=== PATIENT | male | born 1985 | race Caucasian/White ===

== ENCOUNTER 2019-06-11 05:25 | Inpatient (IN) | payer OTHER ==
[2019-06-11] MEDS ORDERED: ACETAMINOPHEN 1000 MG/100 ML VIAL (NON FORMULARY) IVPB ONE (05:37)
[2019-06-11] MEDS ORDERED: levETIRAcetam 500 MG/5 ML INJECTION VIAL IVPB ONE ×3 (05:44→10:13)
--- NOTE | 2019-06-11 05:49 | PDOC ---
History of Present Illness - General Stated Complaint: SEIZURES Time Seen by Provider: 06/11/19 05:45 - History of Present Illness Initial Comments: HPI: 33yo M with PMH of cerebral palsy and seizure disorder (on Keppra 750mg BID and carbamezapine) presenting with multiple seizures. Mother and sisters are at the bedside providing collateral history. Patient recently moved from the [facility] about three months ago. At baseline, patient usually has one or two seizures per day lasting about five seconds at a time. Patient had multiple seizures (one at 1pm and the rest after 8pm for a total of more than seven) today lasting for about one minute each prompting his family to bring the patient to the ED. Last saw his neurologist two weeks ago and has an appointment on 06/20/19 at 11am for an EEG. At baseline, patient is verbal such that only his family can understand him and can ambulate with assistance. He has seemed weaker in the past week. They noticed a cough but no urinary complaints. He has been eating at baseline. No fevers or chills noted at home. PCP: Dr. Wynn Neuro: Dr. Miller ROS: unable to complete (patient somnolent) PE: General: Somnolent, but will open his eyes Head: Microcephaly, No signs of trauma Eyes: Sclera anicteric ENT: Moist mucus membranes Neck: Normal ROM, supple Lungs: Lungs clear, Normal breath sounds Cardio: Tachycardic, Regular rhythm, S1 and S2 present Abdomen: Soft, nondistended, no grimacing noted upon palpation Extremities: Distal pulses present SKIN: Warm, Dry, normal turgor Neurologic: Lethargic, moving all extremities ED Course/MDM: DDX including but not limited to status epilepticus, sub/supratherapeutic AED levels, UTI, PNA Labs, EKG, CXR CT Head EKG: rate 118, QTc 462, sinus tachycardia 06/11/19 05:45 Patient signed out to Dr. Emery and el team 06/11/19 06:58 Past History - Past Medical History Allergies/Adverse Reactions: Allergies Allergy/AdvReac Type Severity Reaction Status Date / Time No Known Allergies Allergy Verified 06/11/19 06:23 Home Medications: Ambulatory Orders Carbamazepine [Tegretol -] 400 mg PO BID 06/11/19 Ergocalciferol (Vitamin D2) [Vitamin D2] 50,000 unit WEEKLY 06/11/19 Levetiracetam [Keppra Xr -] 750 mg PO BID 06/11/19 Olanzapine 5 mg BID 06/11/19 ED Treatment Course - LABORATORY CBC & Chemistry Diagram: 06/11/19 05:50 06/11/19 05:50 Discharge - Discharge Information Problems reviewed: Yes Clinical Impression/Diagnosis: Seizure Condition: Stable - Follow up/Referral - Patient Discharge Instructions - Post Discharge Activity
--- NOTE | 2019-06-11 05:51 | PDOC ---
Attending Attestation - Resident Resident Name: Chloé Srivsatava - ED Attending Attestation I have performed the following: I have examined & evaluated the patient, The case was reviewed & discussed with the resident, I agree w/resident's findings & plan - HPI HPI: 06/11/19 05:50 see resident hpi - Physicial Exam PE: 06/11/19 05:51 see resident exam - Medical Decision Making 06/16/19 16:10 33 yo male with seizure signed out to day shift pending CT scan, neuro consult
[2019-06-11 06:21] LABS: BASO % 0.4 % (0-2.0); EOS % 0.5 % (0-4.5); HEMOGLOBIN 13.7 GM/dL (11.7-16.9); LYMPH % 16.6 % (8-40); MCH 29.7 pg (25.7-33.7); MCHC 33.3 g/dl (32.0-35.9); MEAN CELL VOLUME 89.1 fl (80-96); MEAN PLT VOLUME 7.9 fl (7.5-11.1); MONO % 4.4 % (3.8-10.2); NEUT % 78.1 % (42.8-82.8); PLATELET COUNT 236 K/MM3 (134-434); WHITE BLOOD COUNT 8.1 K/mm3 (4.0-10.0)
[2019-06-11 06:25] LABS: VENOUS PC02 40.2 mmHg (38-52); VENOUS PH 7.34 (7.31-7.41); VENOUS PO2 61.1 mmHg (28-48)
[2019-06-11 06:32] LABS: INR 1.08 (0.83-1.09); PROTHROMBIN TIME (PATIENT) 12.8 SEC (9.7-13.0)
[2019-06-11 06:34] LABS: ACTIVATED PTT 26.4 SECONDS (25.2-36.5)
[2019-06-11 06:44] LABS: ALBUMIN 3.5 g/dl (3.4-5.0); BILIRUBIN,TOTAL 0.1 mg/dL (0.2-1); BLOOD UREA NITROGEN 7.8 mg/dL (7-18); CALCIUM 9.2 mg/dL (8.5-10.1); POTASSIUM 3.3 mmol/L (3.5-5.1); TOT PROT 7.4 g/dl (6.4-8.2)
[2019-06-11 06:48] LABS: EPI CELLS 4.8 /HPF (0-5/HPF); HYALINE CASTS 15 /lpf (0-8); URINE APPEARANCE CLEAR; URINE BACTERIA 12.4 /hpf (NEGATIVE); URINE BILIRUBIN NEGATIVE (NEGATIVE); URINE COLOR YELLOW; URINE GLUCOSE (UA) NEGATIVE (NEGATIVE); URINE KETONE TRACE (NEGATIVE); URINE LEUK ESTERASE TRACE (NEGATIVE); URINE NITRITE NEGATIVE (NEGATIVE); URINE PROTEIN TRACE (NEGATIVE); URINE RBC 4 /hpf (0-4); URINE UROBILINOGEN 0.2 mg/dL (0.2-1.0); URINE WBC 6 /hpf (0-5)
--- NOTE | 2019-06-11 08:57 | CON.NEURO ---
Consult - Alcohol/Substance Use Hx Alcohol Use: No - Smoking History Smoking history: Never smoked Home Medications - Allergies Allergies/Adverse Reactions: Allergies Allergy/AdvReac Type Severity Reaction Status Date / Time No Known Allergies Allergy Verified 06/11/19 06:23 - Home Medications Home Medications: Ambulatory Orders Carbamazepine [Tegretol -] 400 mg PO BID 06/11/19 Levetiracetam [Keppra Xr -] 750 mg PO BID 06/11/19 Physical Exam-Neuro Vital Signs: Vital Signs Temperature 100.1 F H 06/11/19 05:55 Pulse Rate 129 H 06/11/19 05:48 Respiratory Rate 30 H 06/11/19 05:48 Blood Pressure 144/79 06/11/19 05:48 O2 Sat by Pulse Oximetry (%) 0 L 06/11/19 05:48 Labs: CBC, BMP 06/11/19 05:50 06/11/19 05:50 INR, PTT INR 1.08 (0.83-1.09) 06/11/19 05:50 Assessment/Plan cc Status Epilepticus HPI 33 year old male , history of cerebral palsy, epilepsy( on keppra 750 bid and cbz 400 mg bid). Patient lives with family and mostly wheel chair bound. He has minimal comprehensiion. He usually gets 4-5 small brief seizure but not prolonged loc or seizure. On june 11 he has at least 10 seizure, but those were prolonged and without regaining loc. Patient has low grade fever 100.[address] head unremarkable. PMH as above Medication cbz 400 mg bid and keppra 750 mg bid FH,SH,[facility] neck is supple etmp 1oo.1 Alert , opens eye, and follow command occasionally eomi, pupils reactive, moving all extremity sensation is noraml reflex are generlaized diminished ct head is normal cbz level was 7.4 Assessment/Plan 1. Recurrent multiple seizure on Jun 10 , patient is compliant with medication and found to have low grade fever, which could be secondary to multiple seizure Plan: unlikley to be Meninigits , primary team searching source of fever and low grade fever could be secondary to seizure - suggest to get eeg - supprotive care and infectious work up increase keppra to 1000 mg po bid Thanking you so much Germain Miller MD
--- NOTE | 2019-06-11 09:22 | PDOC ---
*Physical Exam - Vital Signs Last Vital Signs Temp Pulse Resp BP Pulse Ox 100.1 F H 129 H 30 H 144/79 0 L 06/11/19 05:55 06/11/19 05:48 06/11/19 05:48 06/11/19 05:48 06/11/19 05:48 - Physical Exam General Appearance: Yes: Nourished. No: Apparent Distress HEENT: positive: Normal ENT Inspection, Normal Voice Neck: positive: Supple Respiratory/Chest: positive: Lungs Clear, Normal Breath Sounds, Rapid RR Cardiovascular: positive: S1, S2, Tachycardia Vascular Pulses: Dorsalis-Pedis (R): 2+, Doralis-Pedis (L): 2+ Gastrointestinal/Abdominal: positive: Soft Male Genitalia: positive: normal genitalia Rectal Exam: positive: normal exam Lymphatic: negative: Adenopathy Musculoskeletal: positive: Decreased Range of Motion. negative: CVA Tenderness , Vertebral Tenderness Extremity: positive: Normal Capillary Refill, Normal Inspection Integumentary: positive: Normal Color, Dry, Warm Neurologic: positive: Fully Oriented, Alert, Normal Mood/Affect ED Treatment Course - LABORATORY CBC & Chemistry Diagram: 06/11/19 05:50 06/11/19 05:50 - ADDITIONAL ORDERS Additional order review: Laboratory Results 06/11/19 06/11/19 06/11/19 06:09 05:50 05:50 PT with INR INR PTT (Actin FS) VBG pH 7.34 POC VBG pCO2 40.2 POC VBG pO2 61.1 H VBG HCO3 20.9 L VBG O2 Sat (Atul) No Result Required. VBG Base Excess No Result Required. Sodium Potassium Chloride Carbon Dioxide Anion Gap BUN Creatinine Est GFR (CKD-EPI)AfAm Est GFR (CKD-EPI)NonAf Random Glucose Lactic Acid 7.7 H* Calcium Total Bilirubin AST ALT Alkaline Phosphatase Troponin I Total Protein Albumin Urine Color Yellow Urine Appearance Clear Urine pH 5.0 Ur Specific [place] 1.018 Urine Protein Trace Urine Glucose (UA) Negative Urine Ketones Trace H Urine Blood Negative Urine Nitrite Negative Urine Bilirubin Negative Urine Urobilinogen 0.2 Ur Leukocyte Esterase Trace Urine WBC (Auto) 6 Urine RBC (Auto) 4 Urine Casts (Auto) 15 U Epithel Cells (Auto) 4.8 U Sm Round Cell (Auto) None Urine Bacteria (Auto) 12.4 Carbamazepine 11/06/11/19 06/11/19 05:50 05:50 05:50 PT with INR INR PTT (Actin FS) VBG pH POC VBG pCO2 POC VBG pO2 VBG HCO3 VBG O2 Sat (Atul) VBG Base Excess Sodium 141 Potassium 3.3 L Chloride 109 H Carbon Dioxide 22 Anion Gap 10 BUN 7.8 Creatinine 1.0 Est GFR (CKD-EPI)AfAm 112.51 Est GFR (CKD-EPI)NonAf 97.08 Random Glucose 126 H Lactic Acid Calcium 9.2 Total Bilirubin 0.1 L AST 22 ALT 30 Alkaline Phosphatase 113 Troponin I < 0.02 Total Protein 7.4 Albumin 3.5 Urine Color Urine Appearance Urine pH Ur Specific [place] Urine Protein Urine Glucose (UA) Urine Ketones Urine Blood Urine Nitrite Urine Bilirubin Urine Urobilinogen Ur Leukocyte Esterase Urine WBC (Auto) Urine RBC (Auto) Urine Casts (Auto) U Epithel Cells (Auto) U Sm Round Cell (Auto) Urine Bacteria (Auto) Carbamazepine 7.4 06/11/19 05:50 PT with INR 12.80 INR 1.08 PTT (Actin FS) 26.4 VBG pH POC VBG pCO2 POC VBG pO2 VBG HCO3 VBG O2 Sat (Atul) VBG Base Excess Sodium Potassium Chloride Carbon Dioxide Anion Gap BUN Creatinine Est GFR (CKD-EPI)AfAm Est GFR (CKD-EPI)NonAf Random Glucose Lactic Acid Calcium Total Bilirubin AST ALT Alkaline Phosphatase Troponin I Total Protein Albumin Urine Color Urine Appearance Urine pH Ur Specific [place] Urine Protein Urine Glucose (UA) Urine Ketones Urine Blood Urine Nitrite Urine Bilirubin Urine Urobilinogen Ur Leukocyte Esterase Urine WBC (Auto) Urine RBC (Auto) Urine Casts (Auto) U Epithel Cells (Auto) U Sm Round Cell (Auto) Urine Bacteria (Auto) Carbamazepine 06/11/19 05:50 RBC 4.60 MCV 89.1 MCHC 33.3 RDW 13.0 MPV 7.9 Neutrophils % 78.1 Lymphocytes % 16.6 Monocytes % 4.4 Eosinophils % 0.5 Basophils % 0.4 - Medications Given in the ED: ED Medications Discontinued Medications Generic Name Dose Route Start Last Admin Trade Name Freq PRN Reason Stop Dose Admin Acetaminophen 1,000 mg 06/11/19 05:37 06/11/19 06:22 Ofirmev Injection - IVPB 06/11/19 05:38 1,000 mg ONCE ONE Administration Levetiracetam 1,000 mg 06/11/19 05:44 06/11/19 05:59 Keppra Injection - IVPB 06/11/19 05:45 Not Given ONCE ONE Medical Decision Making - Medical Decision Making Patient Signed out to me from night team pending Head CT, neuro consult, and admission to hospital for status epilepticus head CT: No acute bleed Neuro Consult - Dr. Batista: Aware of patient, wants him to be loaded up with Keppra and admitted - Patient had another seizure in ER - 2 mg ativan + 1000 keppra Disposition: Admit to telemetry for status Discharge - Discharge Information Problems reviewed: Yes Clinical Impression/Diagnosis: Seizure Condition: Stable - Admission Yes - Follow up/Referral - Patient Discharge Instructions - Post Discharge Activity
--- NOTE | 2019-06-11 09:49 | PN ---
Teaching Attending Note Name of Resident: Jorge Durand ATTENDING PHYSICIAN STATEMENT I saw and evaluated the patient. I reviewed the resident's note and discussed the case with the resident. I agree with the resident's findings and plan as documented. SUBJECTIVE: Witnessed seizure OBJECTIVE: Vital Signs Temperature 99.5 F 06/11/19 09:31 Pulse Rate 85 06/11/19 09:31 Respiratory Rate 18 06/11/19 09:31 Blood Pressure 137/83 06/11/19 09:31 O2 Sat by Pulse Oximetry (%) 98 06/11/19 09:31 General: Young man looks drowsy not in distress HEENT; mucous membranes moist, no anemia, no jaundice, PERRLA, no nystagmus Neck: No JVD, supple, no bruit, thyroid palpably normal, normal carotid pulsations. Chest: Non-`tender, clear to auscultation bilaterally CVS: S1-S2 regular/danna murmur/gallop/rub Abdomen: Nondistended, soft, bowel sounds present. Extremities: No edema., No cough tenderness, pulses present DIRECTOR OF INDIVIDUAL GIVING: Cerebral palsy, received IV lorazepam Lab Results WBC 8.1 K/mm3 (4.0-10.0) 06/11/19 05:50 RBC 4.60 M/mm3 (4.00-5.60) 06/11/19 05:50 Hgb 13.7 GM/dL (11.7-16.9) 06/11/19 05:50 Hct 41.0 % (35.4-49) 06/11/19 05:50 MCV 89.1 fl (80-96) 06/11/19 05:50 MCHC 33.3 g/dl (32.0-35.9) 06/11/19 05:50 RDW 13.0 % (11.9-15.9) 06/11/19 05:50 Plt Count 236 K/MM3 (134-434) 06/11/19 05:50 Sodium 141 mmol/L (136-145) 06/11/19 05:50 Potassium 3.3 mmol/L (3.5-5.1) L 06/11/19 05:50 Chloride 109 mmol/L (98-107) H 06/11/19 05:50 Carbon Dioxide 22 mmol/L (21-32) 06/11/19 05:50 Anion Gap 10 MMOL/L (8-16) 06/11/19 05:50 BUN 7.8 mg/dL (7-18) 06/11/19 05:50 Creatinine 1.0 mg/dL (0.55-1.3) 06/11/19 05:50 Random Glucose 126 mg/dL (74-106) H 06/11/19 05:50 Calcium 9.2 mg/dL (8.5-10.1) 06/11/19 05:50 INR 1.08 (0.83-1.09) 06/11/19 05:50 Lactic acid 7.4 Chest x-ray: No acute infiltrate ASSESSMENT AND PLAN: 33 years old M , nonverbal, information is gathered from the family and ER chart, history of cerebral palsy, lives at home, wheelchair- bound, history of seizures, as per family patient get 1-2 breakthrough seizures every day, yesterday had more than 10 breakthrough seizure with drowsiness, also history of mild cough and congestion for past few days, no nausea/vomiting/ diarrhea, on arrival to ED patient had a low-grade fever, CBC, BMP, chest x-ray , UA are unremarkable, CT head no acute changes, evaluated by neurology recommended to increase Keppra dose to 1 g twice daily and as needed lorazepam for breakthrough seizures Impression: Breakthrough seizures history of seizure disorder sent cerebral palsy. Problem List - Problems (1) Seizure Assessment/Plan: Patient has history of febrile seizure on Tegretol 400 mg and Keppra 750 mg twice daily, presented with recurrent seizures, low-grade fever possibility of URTI provoking breakthrough seizures will order rapid flu test, PRN Tylenol for fever, follow-up neurology recommendations increase Keppra to 1 g twice daily, aspiration precautions, n.p.o., D5 half normal saline 100 cc/h, follow-up magnesium, phosphate and lactic acid. Problems reviewed: Yes Code(s): R56.9 - UNSPECIFIED CONVULSIONS (2) Elevated lactic acid level Assessment/Plan: Most likely due to recurrent seizures, IV hydration follow-up lactic acid level. Problems reviewed: Yes Code(s): R79.89 - OTHER SPECIFIED ABNORMAL FINDINGS OF BLOOD CHEMISTRY (3) Cerebral palsy Assessment/Plan: Chronic Problems reviewed: Yes Code(s): G80.9 - CEREBRAL PALSY, UNSPECIFIED
[2019-06-11] MEDS ORDERED: LORazepam 2 MG/ML SDV VIAL ONE (10:05)
--- NOTE | 2019-06-11 10:12 | PDOC ---
*Physical Exam - Vital Signs Last Vital Signs Temp Pulse Resp BP Pulse Ox 99.5 F 85 18 137/83 98 06/11/19 09:31 06/11/19 09:31 06/11/19 09:31 06/11/19 09:31 06/11/19 09:31 - Physical Exam Comments: 06/11/19 10:11 pt noted to suffer another gen tonic clonic seizure. will administer ativan- 1mg iv. keppra iv being prepped. ED Treatment Course - LABORATORY CBC & Chemistry Diagram: 06/11/19 05:50 06/11/19 05:50 - ADDITIONAL ORDERS Additional order review: Laboratory Results 06/11/19 06/11/19 06/11/19 06:09 05:50 05:50 PT with INR INR PTT (Actin FS) VBG pH 7.34 POC VBG pCO2 40.2 POC VBG pO2 61.1 H VBG HCO3 20.9 L VBG O2 Sat (Atul) No Result Required. VBG Base Excess No Result Required. Sodium Potassium Chloride Carbon Dioxide Anion Gap BUN Creatinine Est GFR (CKD-EPI)AfAm Est GFR (CKD-EPI)NonAf Random Glucose Lactic Acid 7.7 H* Calcium Total Bilirubin AST ALT Alkaline Phosphatase Troponin I Total Protein Albumin Urine Color Yellow Urine Appearance Clear Urine pH 5.0 Ur Specific [place] 1.018 Urine Protein Trace Urine Glucose (UA) Negative Urine Ketones Trace H Urine Blood Negative Urine Nitrite Negative Urine Bilirubin Negative Urine Urobilinogen 0.2 Ur Leukocyte Esterase Trace Urine WBC (Auto) 6 Urine RBC (Auto) 4 Urine Casts (Auto) 15 U Epithel Cells (Auto) 4.8 U Sm Round Cell (Auto) None Urine Bacteria (Auto) 12.4 Carbamazepine 06/11/19 06/11/19 06/11/19 05:50 05:50 05:50 PT with INR INR PTT (Actin FS) VBG pH POC VBG pCO2 POC VBG pO2 VBG HCO3 VBG O2 Sat (Atul) VBG Base Excess Sodium 141 Potassium 3.3 L Chloride 109 H Carbon Dioxide 22 Anion Gap 10 BUN 7.8 Creatinine 1.0 Est GFR (CKD-EPI)AfAm 112.51 Est GFR (CKD-EPI)NonAf 97.08 Random Glucose 126 H Lactic Acid Calcium 9.2 Total Bilirubin 0.1 L AST 22 ALT 30 Alkaline Phosphatase 113 Troponin I < 0.02 Total Protein 7.4 Albumin 3.5 Urine Color Urine Appearance Urine pH Ur Specific [place] Urine Protein Urine Glucose (UA) Urine Ketones Urine Blood Urine Nitrite Urine Bilirubin Urine Urobilinogen Ur Leukocyte Esterase Urine WBC (Auto) Urine RBC (Auto) Urine Casts (Auto) U Epithel Cells (Auto) U Sm Round Cell (Auto) Urine Bacteria (Auto) Carbamazepine 7.4 06/11/19 05:50 PT with INR 12.80 INR 1.08 PTT (Actin FS) 26.4 VBG pH POC VBG pCO2 POC VBG pO2 VBG HCO3 VBG O2 Sat (Atul) VBG Base Excess Sodium Potassium Chloride Carbon Dioxide Anion Gap BUN Creatinine Est GFR (CKD-EPI)AfAm Est GFR (CKD-EPI)NonAf Random Glucose Lactic Acid Calcium Total Bilirubin AST ALT Alkaline Phosphatase Troponin I Total Protein Albumin Urine Color Urine Appearance Urine pH Ur Specific [place] Urine Protein Urine Glucose (UA) Urine Ketones Urine Blood Urine Nitrite Urine Bilirubin Urine Urobilinogen Ur Leukocyte Esterase Urine WBC (Auto) Urine RBC (Auto) Urine Casts (Auto) U Epithel Cells (Auto) U Sm Round Cell (Auto) Urine Bacteria (Auto) Carbamazepine 06/11/19 05:50 RBC 4.60 MCV 89.1 MCHC 33.3 RDW 13.0 MPV 7.9 Neutrophils % 78.1 Lymphocytes % 16.6 Monocytes % 4.4 Eosinophils % 0.5 Basophils % 0.4 - Medications Given in the ED: ED Medications Discontinued Medications Generic Name Dose Route Start Last Admin Trade Name Freq PRN Reason Stop Dose Admin Acetaminophen 1,000 mg 06/11/19 05:37 06/11/19 06:22 Ofirmev Injection - IVPB 06/11/19 05:38 1,000 mg ONCE ONE Administration Levetiracetam 1,000 mg 06/11/19 05:44 06/11/19 05:59 Keppra Injection - IVPB 06/11/19 05:45 Not Given ONCE ONE Discharge - Discharge Information Clinical Impression/Diagnosis: Seizure Condition: Stable - Follow up/Referral - Patient Discharge Instructions - Post Discharge Activity
--- NOTE | 2019-06-11 10:17 | EKG ---
Test Reason : Blood Pressure : / mmHG Vent. Rate : 118 BPM Atrial Rate : 118 BPM P-R Int : 158 ms QRS Dur : 086 ms QT Int : 330 ms P-R-T Axes : 055 074 049 degrees QTc Int : 462 ms SINUS TACHYCARDIA OTHERWISE NORMAL ECG NO PREVIOUS ECGS AVAILABLE Confirmed by JUAN RAMON GOLDBERG, RODNEY ([id number]) on 06/11/2019 10:16:56 AM Referred By: Confirmed By:RODNEY DELATORRE MD
[2019-06-11] MEDS ORDERED: D5-1/2NS+20 MEQ KCL - 20 MEQ/1,000 ML INFUS.BAG IV SCH (12:00)
--- NOTE | 2019-06-11 16:47 | HP ---
CHIEF COMPLAINT: Status Epilepticus per ER Team PCP: HISTORY OF PRESENT ILLNESS: Pt is a 33 y/o M with a significant PMH of cerebral palsy and seizure disorder (on Keppra 750mg BID and carbamezapine) who presented to [facility] due to multiple seizures. Family at bedside assisting in history. Pt normally has 2 seizures per day. Seizures last under 1 minute each and pt responds to his baseline immediately afterwards. However, family endorses patient yesterday began to experience up to 10 seizures with altered mental SocialHx- NC SurgHx- Family denies NKDA ER course was notable for: (1) Lactic Acid 7.7 (2) (3) Allergies No Known Allergies Allergy (Verified 06/11/19 06:23) HOME MEDICATIONS: Home Medications Medication Instructions Recorded Carbamazepine [Tegretol -] 400 mg PO BID 06/11/19 Ergocalciferol (Vitamin D2) 50,000 unit WEEKLY 06/11/19 [Vitamin D2] Levetiracetam [Keppra Xr -] 750 mg PO BID 06/11/19 Olanzapine 5 mg BID 06/11/19 REVIEW OF SYSTEMS CONSTITUTIONAL: Absent: fever, chills, diaphoresis, generalized weakness, malaise, loss of appetite, weight change HEENT: Absent: rhinorrhea, nasal congestion, throat pain, throat swelling, difficulty swallowing, mouth swelling, ear pain, eye pain, visual changes CARDIOVASCULAR: Absent: chest pain, syncope, palpitations, irregular heart rate, lightheadedness , peripheral edema RESPIRATORY: Absent: cough, shortness of breath, dyspnea with exertion, orthopnea, wheezing, stridor, hemoptysis GASTROINTESTINAL: Absent: abdominal pain, abdominal distension, nausea, vomiting, diarrhea, constipation, melena, hematochezia GENITOURINARY: Absent: dysuria, frequency, urgency, hesitancy, hematuria, flank pain, genital pain MUSCULOSKELETAL: Absent: myalgia, arthralgia, joint swelling, back pain, neck pain SKIN: Absent: rash, itching, pallor HEMATOLOGIC/IMMUNOLOGIC: Absent: easy bleeding, easy bruising, lymphadenopathy, frequent infections ENDOCRINE: Absent: unexplained weight gain, unexplained weight loss, heat intolerance, cold intolerance NEUROLOGIC: Absent: headache, focal weakness or paresthesias, dizziness, unsteady gait, seizure, mental status changes, bladder or bowel incontinence PSYCHIATRIC: Absent: anxiety, depression, suicidal or homicidal ideation, hallucinations. PHYSICAL EXAMINATION Vital Signs - 24 hr 06/11/19 06/11/19 06/11/19 05:48 05:55 09:31 Temperature 100.1 F H 100.1 F H 99.5 F Pulse Rate 129 H Pulse Rate [ 85 Right Radial] Respiratory 30 H 18 Rate Blood Pressure 144/79 Blood Pressure 137/83 [Left Arm] O2 Sat by Pulse 0 L 98 Oximetry (%) 06/11/19 16:30 Temperature 99.1 F Pulse Rate Pulse Rate [ 86 Right Radial] Respiratory 16 Rate Blood Pressure Blood Pressure 115/83 [Left Arm] O2 Sat by Pulse 99 Oximetry (%) GENERAL: Somnolent, nonverbal. HEAD: Normal with no signs of trauma. EYES: Sclera Clear EOMI EARS, NOSE, THROAT: LUNGS: Coarse breath sounds throughout HEART: Tachycardic S1S2 ABDOMEN: Soft, nontender nondistended UPPER EXTREMITIES: 2+ pulses, warm, well-perfused. No cyanosis. No clubbing. No peripheral edema. LOWER EXTREMITIES: 2+ pulses, warm, well-perfused. No calf tenderness. No peripheral edema. NEUROLOGICAL: Cranial nerves II-XII intact. Normal speech. Normal gait. PSYCHIATRIC: Cooperative. Good eye contact. Appropriate mood and affect. SKIN: No rashes or lesions Laboratory Results - last 24 hr 06/11/19 06/11/19 06/11/19 05:50 05:50 05:50 WBC RBC Hgb Hct MCV MCH MCHC RDW Plt Count MPV Absolute Neuts (auto) Neutrophils % Lymphocytes % Monocytes % Eosinophils % Basophils % Nucleated RBC % PT with INR 12.80 INR 1.08 PTT (Actin FS) 26.4 VBG pH POC VBG pCO2 POC VBG pO2 VBG HCO3 VBG O2 Sat (Atul) VBG Base Excess Sodium Potassium Chloride Carbon Dioxide Anion Gap BUN Creatinine Est GFR (CKD-EPI)AfAm Est GFR (CKD-EPI)NonAf Random Glucose Lactic Acid Calcium Total Bilirubin AST ALT Alkaline Phosphatase Troponin I < 0.02 Total Protein Albumin Urine Color Urine Appearance Urine pH Ur Specific [place] Urine Protein Urine Glucose (UA) Urine Ketones Urine Blood Urine Nitrite Urine Bilirubin Urine Urobilinogen Ur Leukocyte Esterase Urine WBC (Auto) Urine RBC (Auto) Urine Casts (Auto) U Epithel Cells (Auto) U Sm Round Cell (Auto) Urine Bacteria (Auto) Carbamazepine 7.4 06/11/19 06/11/19 06/11/19 05:50 05:50 05:50 WBC 8.1 RBC 4.60 Hgb 13.7 Hct 41.0 MCV 89.1 MCH 29.7 MCHC 33.3 RDW 13.0 Plt Count 236 MPV 7.9 Absolute Neuts (auto) 6.3 Neutrophils % 78.1 Lymphocytes % 16.6 Monocytes % 4.4 Eosinophils % 0.5 Basophils % 0.4 Nucleated RBC % 0 PT with INR INR PTT (Actin FS) VBG pH POC VBG pCO2 POC VBG pO2 VBG HCO3 VBG O2 Sat (Atul) VBG Base Excess Sodium 141 Potassium 3.3 L Chloride 109 H Carbon Dioxide 22 Anion Gap 10 BUN 7.8 Creatinine 1.0 Est GFR (CKD-EPI)AfAm 112.51 Est GFR (CKD-EPI)NonAf 97.08 Random Glucose 126 H Lactic Acid 7.7 H* Calcium 9.2 Total Bilirubin 0.1 L AST 22 ALT 30 Alkaline Phosphatase 113 Troponin I Total Protein 7.4 Albumin 3.5 Urine Color Urine Appearance Urine pH Ur Specific [place] Urine Protein Urine Glucose (UA) Urine Ketones Urine Blood Urine Nitrite Urine Bilirubin Urine Urobilinogen Ur Leukocyte Esterase Urine WBC (Auto) Urine RBC (Auto) Urine Casts (Auto) U Epithel Cells (Auto) U Sm Round Cell (Auto) Urine Bacteria (Auto) Carbamazepine 06/11/19 06/11/19 06/11/19 05:50 06:09 15:06 WBC RBC Hgb Hct MCV MCH MCHC RDW Plt Count MPV Absolute Neuts (auto) Neutrophils % Lymphocytes % Monocytes % Eosinophils % Basophils % Nucleated RBC % PT with INR INR PTT (Actin FS) VBG pH 7.34 POC VBG pCO2 40.2 POC VBG pO2 61.1 H VBG HCO3 20.9 L VBG O2 Sat (Atul) No Result Required. VBG Base Excess No Result Required. Sodium Potassium Chloride Carbon Dioxide Anion Gap BUN Creatinine Est GFR (CKD-EPI)AfAm Est GFR (CKD-EPI)NonAf Random Glucose Lactic Acid 1.7 Calcium Total Bilirubin AST ALT Alkaline Phosphatase Troponin I Total Protein Albumin Urine Color Yellow Urine Appearance Clear Urine pH 5.0 Ur Specific [place] 1.018 Urine Protein Trace Urine Glucose (UA) Negative Urine Ketones Trace H Urine Blood Negative Urine Nitrite Negative Urine Bilirubin Negative Urine Urobilinogen 0.2 Ur Leukocyte Esterase Trace Urine WBC (Auto) 6 Urine RBC (Auto) 4 Urine Casts (Auto) 15 U Epithel Cells (Auto) 4.8 U Sm Round Cell (Auto) None Urine Bacteria (Auto) 12.4 Carbamazepine ASSESSMENT/PLAN: Pt is a 33 y/o M with a significant PMH of cerebral palsy and seizure disorder (on Keppra 750mg BID and carbamezapine) who presented to [facility] due to multiple seizures. # Seizure D/O -Neurology on board. Recommends increasing Keppra to 1000 BID -Will continue Carbmezapine. -Seizure precautions -suggest to get eeg -Tele Monitoring -CBC/CMP in am -Lactic initially 7.4. Now WNL. -will order rapid flu test, -PRN Tylenol for fever #FEN -D51/2NS w/ 20 mEQ -Monitor Electrolytes -NPO #DVT ppx -HEP SQ TID #Dispo - Tele 3Medications reconciled today. - ATTENDING PHYSICIAN STATEMENT I saw and evaluated the patient. I reviewed the resident's note and discussed the case with the resident. I agree with the resident's findings and plan as documented. SUBJECTIVE: OBJECTIVE: ASSESSMENT AND PLAN:
[2019-06-11] MEDS ORDERED: ERGOCALCIFEROL (VIT D2) 50,000 UNIT (1.25 MG) CAPSULE PO SCH (17:00)
[2019-06-11] MEDS ORDERED: OLANZapine 5 MG TABLET PO SCH (22:00)
[2019-06-11] MEDS ORDERED: levETIRAcetam 500 MG TABLET (FP) PO SCH (22:00)
[2019-06-11] MEDS ORDERED: carBAMazepine 200 MG TABLET PO SCH (22:00)
[2019-06-11] MEDS ORDERED: OLANZapine 10 MG TABLET ONE (23:11)
[2019-06-11] MEDS ORDERED: carBAMazepine 200 MG TABLET ONE (23:11)
[2019-06-11] MEDS ORDERED: levETIRAcetam 500 MG TABLET (FP) PO ONE (23:12)
[2019-06-12 01:56] VITALS: BMI 32.3
[2019-06-12] MEDS ORDERED: LORazepam 2 MG/ML SDV VIAL IVPUSH PRN ×2 (04:27→04:47)
--- NOTE | 2019-06-12 04:40 | PN ---
Progress Note (short form) - Note Progress Note: Called by RN whom states the pt's family reported witnessed x2 brief seizures in room. Seizure resolved on its own w/o intervention. Chart reviewed for recommendation. Ordered ativan for breakthrough as noted.
[2019-06-12] MEDS ORDERED: ERGOCALCIFEROL (VIT D2) 50,000 UNIT (1.25 MG) CAPSULE PO SCH (05:48)
[2019-06-12] MEDS ORDERED: D5-1/2NS+20 MEQ KCL - 20 MEQ/1,000 ML INFUS.BAG IV SCH (05:48)
[2019-06-12 09:21] LABS: BASO % 0.5 % (0-2.0); EOS % 0.6 % (0-4.5); HEMATOCRIT 35.7 % (35.4-49); HEMOGLOBIN 12.1 GM/dL (11.7-16.9); LYMPH % 23.9 % (8-40); MCH 29.9 pg (25.7-33.7); MEAN CELL VOLUME 88.2 fl (80-96); MEAN PLT VOLUME 7.6 fl (7.5-11.1); MONO % 8.2 % (3.8-10.2); NEUT % 66.8 % (42.8-82.8); PLATELET COUNT 230 K/MM3 (134-434); RBC 4.05 M/mm3 (4.00-5.60); WHITE BLOOD COUNT 5.8 K/mm3 (4.0-10.0)
[2019-06-12 09:56] LABS: BILIRUBIN,TOTAL 0.4 mg/dL (0.2-1); BLOOD UREA NITROGEN 3.3 mg/dL (7-18); CALCIUM 8.6 mg/dL (8.5-10.1); CREATININE 0.5 mg/dL (0.55-1.3); PHOSPHOROUS 3.5 mg/dL (2.5-4.9); POTASSIUM 3.7 mmol/L (3.5-5.1); TOT PROT 6.5 g/dl (6.4-8.2)
[2019-06-12 10:07] LABS: INR 1.1 (0.83-1.09)
[2019-06-12 10:09] LABS: ACTIVATED PTT 30.3 SECONDS (25.2-36.5)
[2019-06-12] MEDS ORDERED: PT OWN MED DRAWER 7, Y5N ONE ×3 (10:19→21:00)
[2019-06-12] MEDS: carBAMazepine 200 MG TABLET PO SCH ×2 (10:44→22:07)
[2019-06-12] MEDS: OLANZapine 5 MG TABLET PO SCH ×2 (10:45→22:07)
[2019-06-12] MEDS: levETIRAcetam 500 MG TABLET (FP) PO SCH ×2 (10:45→22:06)
--- NOTE | 2019-06-12 14:24 | PN ---
Progress Note (short form) - Note Progress Note: SUBJECTIVE: Non-verbal, unable to participate in medical interview. 2x seizure activity overnight requiring Ativan. OBJECTIVE: Afebrile, Hemodynamically Stable. Appearance consistent with Cerebral Palsy Last Vital Signs Temp Pulse Resp BP Pulse Ox 98.8 F 84 18 125/81 97 06/12/19 10:00 06/12/19 10:00 06/12/19 10:00 06/12/19 10:00 06/12/19 11:46 Heart - S1, S2, RRR Lungs - clear to auscultation Abdomen - Soft, non-tender. Bowel Sounds normal. Extremities - contractures, wasting, no edema, no calf tenderness Laboratory Results - last 24 hr 06/11/19 06/12/19 06/12/19 15:06 09:05 09:05 WBC 5.8 RBC 4.05 Hgb 12.1 Hct 35.7 MCV 88.2 MCH 29.9 MCHC 34.0 RDW 13.0 Plt Count 230 MPV 7.6 Absolute Neuts (auto) 3.9 Neutrophils % 66.8 Lymphocytes % 23.9 D Monocytes % 8.2 D Eosinophils % 0.6 Basophils % 0.5 Nucleated RBC % 0 PT with INR 13.00 INR 1.10 H PTT (Actin FS) 30.3 Sodium Potassium Chloride Carbon Dioxide Anion Gap BUN Creatinine Est GFR (CKD-EPI)AfAm Est GFR (CKD-EPI)NonAf Random Glucose Lactic Acid 1.7 Calcium Phosphorus Magnesium Total Bilirubin AST ALT Alkaline Phosphatase Total Protein Albumin 06/12/19 09:05 WBC RBC Hgb Hct MCV MCH MCHC RDW Plt Count MPV Absolute Neuts (auto) Neutrophils % Lymphocytes % Monocytes % Eosinophils % Basophils % Nucleated RBC % PT with INR INR PTT (Actin FS) Sodium 142 Potassium 3.7 Chloride 108 H Carbon Dioxide 27 Anion Gap 7 L BUN 3.3 L Creatinine 0.5 L Est GFR (CKD-EPI)AfAm 162.72 Est GFR (CKD-EPI)NonAf 140.40 Random Glucose 87 Lactic Acid Calcium 8.6 Phosphorus 3.5 Magnesium 2.0 Total Bilirubin 0.4 AST 29 ALT 33 Alkaline Phosphatase 112 Total Protein 6.5 Albumin 3.0 L Current Medications Generic Name Dose Route Start Last Admin Trade Name Freq PRN Reason Stop Dose Admin Carbamazepine 400 mg 06/12/19 10:00 06/12/19 10:44 Tegretol - PO 400 mg BID NUBIA Administration Ergocalciferol 50,000 unit 06/12/19 05:48 Drisdol - PO WEEKLY NUBIA Potassium Chloride/Dextrose/Sod Cl 20 meq in 1,000 mls @ 83 mls/hr 06/12/19 05 :48 06/12/19 07:30 D5-1/2ns+20 Meq Kcl - IV 83 mls/hr ASDIR NUBIA Administration Levetiracetam 1,000 mg 06/12/19 10:00 06/12/19 10:45 Keppra - PO 1,000 mg BID NUBIA Administration Lorazepam 1 mg 06/12/19 04:47 Ativan Injection - IVPUSH Q4H PRN MUSCLE SPASMS Olanzapine 5 mg 06/12/19 10:00 06/12/19 10:45 Zyprexa - PO 5 mg BID NUBIA Administration Home Medications Medication Instructions Recorded Carbamazepine [Tegretol -] 400 mg PO BID 06/11/19 Ergocalciferol (Vitamin D2) 50,000 unit WEEKLY 06/11/19 [Vitamin D2] Levetiracetam [Keppra Xr -] 750 mg PO BID 06/11/19 Olanzapine 5 mg BID 06/11/19 ASSESSMENT/PLAN: 33 year old male with Cerebral Palsy (non-verbal) lives at home, wheelchair bound, Seizure Disorder, presented to ED with greater jil 10 breakthrough seizure episodes. Noted to have a low grade fever in ED. 1. Breakthrough Seizures Keppra dose increased to 1g BID by Neurology. Continue Carbamazepine. CT Head - no acute findings. Tmax 100.1, no infective source so far (CXR neg, Blood Cx neg, Urine Cx < 60, 000 CFU/ml) Will monitor off Abx. EEG as per Neuro recommendations. Lactic Acidosis resolved. Start feeding. Discontinue IV fluids. Ativan PRN 2. Cerebral Palsy with behavioral disturbance - on Olanzapine DVT Px - Heparin SQ Visit type - Emergency Visit Emergency Visit: Yes ED Registration Date: 06/11/19 Care time: The patient presented to the Emergency Department on the above date and was hospitalized for further evaluation of their emergent condition. - New Patient This patient is new to me today: Yes Date on this admission: 06/12/19 - Critical Care Critical Care patient: No - Discharge Referral Referred to [facility] Med P.C.: No
[2019-06-12] MEDS: HEPARIN NA (PORCINE) 5,000 UNITS/ML 1ML VIAL SQ SCH ×2 (14:53→22:06)
[2019-06-13] MEDS: HEPARIN NA (PORCINE) 5,000 UNITS/ML 1ML VIAL SQ SCH (06:01)
[2019-06-13] MEDS ORDERED: PT OWN MED DRAWER 7, Y5N ONE ×2 (06:22→09:53)
[2019-06-13] MEDS ORDERED: guaiFENesin/D-METHORPHAN HB 10 ML UNIT-DOSE CUPS PO ONE (06:30)
[2019-06-13] MEDS: carBAMazepine 200 MG TABLET PO SCH (10:14)
[2019-06-13] MEDS: OLANZapine 5 MG TABLET PO SCH (10:15)
[2019-06-13] MEDS: levETIRAcetam 500 MG TABLET (FP) PO SCH (10:15)
--- NOTE | 2019-06-13 10:51 | PN ---
Teaching Attending Note Name of Resident: Shruthi De ATTENDING PHYSICIAN STATEMENT I saw and evaluated the patient. I reviewed the resident's note and discussed the case with the resident. I agree with the resident's findings and plan as documented. SUBJECTIVE: Non-verbal, unable to participate in medical interview. No more seizure activity overnight. OBJECTIVE: Afebrile, Hemodynamically Stable. Appearance consistent with Cerebral Palsy Last Vital Signs Temp Pulse Resp BP Pulse Ox 98.8 F 92 H 20 110/68 97 06/13/19 05:54 06/13/19 05:54 06/13/19 05:54 06/13/19 05:54 06/12/19 22:00 Heart - S1, S2, RRR Lungs - clear to auscultation Abdomen - Soft, non-tender. Bowel Sounds normal. Extremities - LE contractures, wasting, no edema, no calf tenderness Current Medications Generic Name Dose Route Start Last Admin Trade Name Freq PRN Reason Stop Dose Admin Carbamazepine 400 mg 06/12/19 10:00 06/13/19 10:14 Tegretol - PO 400 mg BID NUBIA Administration Ergocalciferol 50,000 unit 06/12/19 05:48 Drisdol - PO WEEKLY NUBIA Heparin Sodium (Porcine) 5,000 unit 06/12/19 14:30 06/13/19 06:01 Heparin - SQ 5,000 unit TID NUBIA Administration Levetiracetam 1,000 mg 06/12/19 10:00 06/13/19 10:15 Keppra - PO 1,000 mg BID NUBIA Administration Lorazepam 1 mg 06/12/19 04:47 Ativan Injection - IVPUSH Q4H PRN MUSCLE SPASMS Olanzapine 5 mg 06/12/19 10:00 06/13/19 10:15 Zyprexa - PO 5 mg BID NUBIA Administration Home Medications Medication Instructions Recorded Carbamazepine [Tegretol -] 400 mg PO BID 06/11/19 Ergocalciferol (Vitamin D2) 50,000 unit WEEKLY 06/11/19 [Vitamin D2] Olanzapine 5 mg BID 06/11/19 levETIRAcetam [Keppra -] 1,000 mg PO BID 30 Days #120 tablet 06/13/19 ASSESSMENT/PLAN: 33 year old male with Cerebral Palsy (non-verbal) lives at home, wheelchair bound, Seizure Disorder, presented to ED with greater jil 10 breakthrough seizure episodes. Noted to have a low grade fever in ED. 1. Breakthrough Seizures Keppra dose increased to 1g BID by Neurology. Continue Carbamazepine. CT Head - no acute findings. Tmax 100.1, Urine Cx pos for Klebsiella - although < 60,000CFU/ml will treat with 1 week Cephalosporin given low grade fever and propensity for seizure when infected/febrile. 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 Lactic Acidosis resolved. tolerating oral intake. Ativan PRN Medically/Neurologically stable for discharge with neuro out-patient follow up next week. 2. Cerebral Palsy with behavioral disturbance - on Olanzapine DVT Px - Heparin SQ
[2019-06-13 11:26] VITALS: BP 122/73; PULSE 93; TEMP 97.9
--- NOTE | 2019-06-13 12:45 | DS ---
Physical Exam: SUBJECTIVE: Patient seen and examined in the morning. No acute events overnight. Patient was arousable but did not communicate with examiner. As per family members patient did not have any complaints of headaches, chest pain, nausea, vomiting, diarrhea. OBJECTIVE: Vital Signs Period Temp Pulse Resp BP Sys/Rosado Pulse Ox Last 24 Hr 97.9 F-99.6 F 74-95 20-20 98-131/53-77 95-97 PHYSICAL EXAM GENERAL: The patient is resting comfortably. HEAD: Normal with no signs of trauma. LUNGS: Breath sounds equal, clear to auscultation bilaterally, no wheezes, no crackles. HEART: Regular rate and rhythm, S1, S2 without murmur, rub or gallop. ABDOMEN: Soft, nontender, nondistended, no guarding, no rebound. EXTREMITIES: 2+ pulses, warm, well-perfused, no edema. PSYCH: Normal mood, normal affect. SKIN: Warm, dry, normal turgor, no rashes or lesions noted. LABS Microbiology 06/11/19 06:09 Urine - Urine - Catheterized Urine Culture - Final Klebsiella Pneumoniae 06/11/19 05:50 Blood - Peripheral Venous Blood Culture - Preliminary NO GROWTH OBTAINED AFTER 48 HOURS, INCUBATION TO CONTINUE FOR 3 DAYS. 06/11/19 05:50 Blood - Peripheral Venous Blood Culture - Preliminary NO GROWTH OBTAINED AFTER 48 HOURS, INCUBATION TO CONTINUE FOR 3 DAYS. HOSPITAL COURSE: Date of Admission:06/11/19 Date of Discharge: 06/13/19 33 M with seizure disorder, cerebral palsy, who presented to the ED with breakthrough seizures. Patient had keppra dosage increased to 1000 mg PO BID, and continued with carbamazepine 400 mg PO BID. Patient had negative head CT and will have outpatient follow up for EEG. Patient was found to have Klebseilla positive Urine culture, and was given one dose of Levofloxacin 500 mg PO before discharge. Will complete 6 more days of Levofloxacin 500 mg PO Daily. Patient had elevated lactic acid on admission which resolved with hydration. Patient had two episode of seizures while on floors which were resolved with Ativan. Patient will follow up with Neurologist on 06/23/19 and continue with 1000 mg PO BID of keppra, and Levofloxacin 500 mg PO Daily for 6 days. Will continue with other home medications as directed. Imaging done this admission: Chest X-Ray: Impression: No acute chest pathology. Head CT: No evidence of acute intracranial hemorrhage, edema, midline shift, mass effect, or skull fracture.There is no CT evidence of acute territorial infarction. Mucoperiosteal thickening in the right maxillary sinus. Minutes to complete discharge: 30 Discharge Summary Problems reviewed: Yes Reason For Visit: SEIZURE Current Active Problems Cerebral palsy (Chronic) Seizure (Chronic) Condition: Stable - Instructions Diet, Activity, Other Instructions: You were admitted to the hospital because you had multiple seizures on the 06/11. While in the hospital you had a few more seizures which we treated with Ativan. You did not have any episodes of seizure the day before of your discharge. You have a urinary tract infection, we will treat it with oral antibiotics. Please take Levofloxacin 500mg by mouth daily for the next 6 days. You have received one dose in the hospital before discharge. We increased the dosage of your Keppra to 1,000 mg by mouth twice a day. You can continue all your other home medications as directed. Please follow up with Dr. Miller on 06/23/19, and contact his office before then to get an appointment for an EEG before then. Please follow up with Dr. Dunham within 1 week to update them on your health and this admission. Return to the emergency department if you have new episodes of uncharacteristic seizures, nausea, vomiting, fever, chest pain, or worsening of your symptoms. Referrals: Germain Miller MD [Staff Physician] - 06/23/19 Pierce Dunham MD [Primary Care Provider] - 1 Week Disposition: HOME - Home Medications Comprehensive Discharge Medication List: Ambulatory Orders Carbamazepine [Tegretol -] 400 mg PO BID 06/11/19 Ergocalciferol (Vitamin D2) [Vitamin D2] 50,000 unit WEEKLY 06/11/19 Olanzapine 5 mg BID 06/11/19 levETIRAcetam [Keppra -] 1,000 mg PO BID 30 Days #120 tablet 06/13/19 levoFLOXacin [Levaquin -] 500 mg PO DAILY 6 Days #6 tablet 06/13/19 This patient is new to me today: Yes Date on this admission: 06/13/19 Emergency Visit: Yes ED Registration Date: 06/11/19 Care time: The patient presented to the Emergency Department on the above date and was hospitalized for further evaluation of their emergent condition. Critical Care patient: No - Discharge Referral Referred to [facility] Med P.C.: No ATTENDING PHYSICIAN STATEMENT I saw and evaluated the patient. I reviewed the resident's note and discussed the case with the resident. I agree with the resident's findings and plan as documented. SUBJECTIVE: OBJECTIVE: ASSESSMENT AND PLAN:
== END 2019-06-13 12:37 | disposition home or self-care (01) | DRG 53 ==
LOC: JER 05:25 → EDBD 05:25 → JERBED 09:23 → J8W 06-12 01:35 → J4W 06-12 05:21
PROVIDERS: ADMIT Internal Medicine
DX: R56.9 Unspecified convulsions (principal); R53.2 Functional quadriplegia; G80.9 Cerebral palsy, unspecified; R79.89 Other specified abnormal findings of blood chemistry; R00.0 Tachycardia, unspecified
CPT/HCPCS: 36415; 70450-TC; 71045-TC-FY; 80053; 80177; 81003; 82803; 83605; 83735; 84100; 84484; 85025; 85610; 85730; 87040; 87086; 87186; 93005; 93010; 99285-25; J0131; J1644

== ENCOUNTER 2020-11-12 13:22 | Emergency (ER) | payer OTHER ==
[2020-11-12 13:37] VITALS: BP 134/99; PULSE 75; TEMP 98.3; BMI 32.2
[2020-11-12] MEDS ORDERED: LACTATED RINGERS SOLUTION 1,000 ML/1,000 ML INFUS.BAG IV STA (14:16)
[2020-11-12 15:39] LABS: BASO % 0.5 % (0-2.0); EOS % 1.2 % (0-4.5); HEMATOCRIT 35.8 % (35.4-49); HEMOGLOBIN 11.8 GM/dL (11.7-16.9); LYMPH % 35.3 % (8-40); MCH 28.1 pg (25.7-33.7); MCHC 33.1 g/dl (32.0-35.9); MONO % 7.4 % (3.8-10.2); NEUT % 55.6 % (42.8-82.8); PLATELET COUNT 224 K/MM3 (134-434); RBC 4.21 M/mm3 (4.00-5.60); RDW 13.9 % (11.9-15.9); WHITE BLOOD COUNT 4.9 K/mm3 (4.0-10.0)
[2020-11-12 16:01] LABS: CALCIUM 8.8 mg/dL (8.5-10.1)
[2020-11-12 16:02] LABS: ALBUMIN 3.4 g/dl (3.4-5.0); BLOOD UREA NITROGEN 4.6 mg/dL (7-18)
[2020-11-12 16:05] LABS: CREATININE 0.5 mg/dL (0.55-1.3)
[2020-11-12 16:07] LABS: BILIRUBIN,TOTAL 0.3 mg/dL (0.2-1); TOT PROT 7.1 g/dl (6.4-8.2)
[2020-11-12 16:20] LABS: URINE APPEARANCE CLEAR; URINE BILIRUBIN NEGATIVE (NEGATIVE); URINE COLOR YELLOW; URINE GLUCOSE (UA) NEGATIVE (NEGATIVE); URINE KETONE NEGATIVE (NEGATIVE); URINE LEUK ESTERASE NEGATIVE (NEGATIVE); URINE NITRITE NEGATIVE (NEGATIVE); URINE PROTEIN NEGATIVE (NEGATIVE); URINE UROBILINOGEN 0.2 mg/dL (0.2-1.0)
== END 2020-11-12 21:46 | disposition home or self-care (01) ==
LOC: JER 13:22
DX: R11.2 Nausea with vomiting, unspecified (principal)
CPT/HCPCS: 36415; 71045-TC-FY; 74177-TC; 80053; 81003; 85025; 87086; 87804; 99285-25; C9803; Q9967; U0003; U0005

== ENCOUNTER 2021-01-13 05:22 | Day surgery (SDC) | payer OTHER ==
[2021-01-12 09:53] VITALS: BMI 29.2
[2021-01-13 10:29] VITALS: TEMP 97.5
[2021-01-13 11:25] VITALS: BP 141/89; PULSE 96
== END 2021-01-13 11:24 | disposition home or self-care (01) ==
LOC: JASU-ENDO 05:22
PROVIDERS: ATTEND Internal Medicine Gastroenterology
PROC: 0DB68ZX Excision of Stomach, Via Natural or Artificial Opening Endoscopic, Diagnostic (ICD-10-PCS; 2021-01-13)
PROC: 0DB18ZX Excision of Upper Esophagus, Via Natural or Artificial Opening Endoscopic, Diagnostic (ICD-10-PCS; 2021-01-13)
PROC: 0DB28ZX Excision of Middle Esophagus, Via Natural or Artificial Opening Endoscopic, Diagnostic (ICD-10-PCS; 2021-01-13)
PROC: 0DB38ZX Excision of Lower Esophagus, Via Natural or Artificial Opening Endoscopic, Diagnostic (ICD-10-PCS; 2021-01-13)
PROC: 0DJD8ZZ Inspection of Lower Intestinal Tract, Via Natural or Artificial Opening Endoscopic (ICD-10-PCS; principal; 2021-01-13 09:55)
PROC: 0DB48ZX Excision of Esophagogastric Junction, Via Natural or Artificial Opening Endoscopic, Diagnostic (ICD-10-PCS; 2021-01-13 09:55)
DX: K29.50 Unspecified chronic gastritis without bleeding (principal); K92.1 Melena; K21.00 Gastro-esophageal reflux disease with esophagitis, without bleeding; G80.8 Other cerebral palsy; G40.802 Other epilepsy, not intractable, without status epilepticus
CPT/HCPCS: 88305-TC; 88312-TC; 88342-TC

== ENCOUNTER 2021-02-15 10:39 | Emergency (ER) | payer OTHER ==
[2021-02-15 11:32] VITALS: BMI 22.9
[2021-02-15] MEDS ORDERED: SODIUM CHLORIDE 0.9% 500 ML INFUS.BAG IV ONE (11:39)
[2021-02-15 13:09] LABS: BASO % 1.4 % (0-2.0); EOS % 1.2 % (0-4.5); HEMATOCRIT 33.1 % (35.4-49); HEMOGLOBIN 10.7 GM/dL (11.7-16.9); MCH 24.5 pg (25.7-33.7); MCHC 32.4 g/dl (32.0-35.9); MEAN CELL VOLUME 75.5 fl (80-96); MEAN PLT VOLUME 7.5 fl (7.5-11.1); MONO % 8.7 % (3.8-10.2); NEUT % 53.7 % (42.8-82.8); PLATELET COUNT 255 10^3/uL (134-434); RBC 4.39 M/mm3 (4.00-5.60); RDW 14.7 % (11.9-15.9); WHITE BLOOD COUNT 3.5 K/mm3 (4.0-10.0)
[2021-02-15 13:14] LABS: PH,URINE 8.5 (5.0-8.0); URINE APPEARANCE CLEAR; URINE BILIRUBIN NEGATIVE (NEGATIVE); URINE COLOR YELLOW; URINE GLUCOSE (UA) NEGATIVE (NEGATIVE); URINE KETONE NEGATIVE (NEGATIVE); URINE LEUK ESTERASE NEGATIVE (NEGATIVE); URINE NITRITE NEGATIVE (NEGATIVE); URINE PROTEIN NEGATIVE (NEGATIVE); URINE UROBILINOGEN 0.2 mg/dL (0.2-1.0)
[2021-02-15 13:16] LABS: INR 0.99 (0.83-1.09); PROTHROMBIN TIME (PATIENT) 12.2 SEC (9.7-13.0)
[2021-02-15 13:19] LABS: ACTIVATED PTT 30.7 SECONDS (25.2-36.5)
[2021-02-15 13:32] LABS: CHLORIDE 97 mmol/L (98-107); SODIUM 132 mmol/L (136-145)
[2021-02-15 13:33] LABS: CALCIUM 8.5 mg/dL (8.5-10.1)
[2021-02-15 13:34] LABS: ALBUMIN 3.4 g/dl (3.4-5.0); ANION GAP 9 MMOL/L (8-16); BLOOD UREA NITROGEN 4.2 mg/dL (7-18); CO2 26 mmol/L (21-32); GLUCOSE,RANDOM 76 mg/dL (74-106)
[2021-02-15 13:37] LABS: CREATININE 0.6 mg/dL (0.55-1.3); SGOT/AST 16 U/L (15-37); SGPT/ALT 19 U/L (13-61)
[2021-02-15 13:39] LABS: BILIRUBIN,TOTAL 0.3 mg/dL (0.2-1); TOT PROT 7.1 g/dl (6.4-8.2)
[2021-02-15 13:40] LABS: ALK PHOS 86 U/L (45-117)
[2021-02-15 15:11] VITALS: BP 128/88; PULSE 78; TEMP 98.5
== END 2021-02-15 15:45 | disposition home or self-care (01) ==
LOC: JER 10:39
DX: G40.89 Other seizures (principal); R53.1 Weakness; G80.9 Cerebral palsy, unspecified
CPT/HCPCS: 36415; 71045-TC-FY; 80053; 80177; 81003; 83605; 84484; 85025; 85610; 85730; 87040; 87086; 93005; 93010; 99285-25

== ENCOUNTER 2022-01-17 11:10 | Inpatient (IN) | payer OTHER ==
[2022-01-17 14:19] LABS: BASO % 0.7 % (0-2.0); EOS % 0.5 % (0-4.5); HEMATOCRIT 36.8 % (35.4-49); HEMOGLOBIN 11.8 GM/dL (11.7-16.9); INR 1.06 (0.83-1.09); LYMPH % 27.9 % (8-40); MCH 24.2 pg (25.7-33.7); MCHC 32.1 g/dl (32.0-35.9); MEAN CELL VOLUME 75.4 fl (80-96); MONO % 8.9 % (3.8-10.2); PLATELET COUNT 264 10^3/uL (134-434); PROTHROMBIN TIME (PATIENT) 12.2 SEC (9.7-13.0); RBC 4.88 M/mm3 (4.00-5.60); RDW 16.3 % (11.9-15.9); WHITE BLOOD COUNT 3.8 K/mm3 (4.0-10.0)
[2022-01-17 14:22] LABS: ACTIVATED PTT 26.9 SECONDS (25.2-36.5)
[2022-01-17 14:40] LABS: CALCIUM 9.2 mg/dL (8.5-10.1)
[2022-01-17 14:41] LABS: ALBUMIN 4.1 g/dl (3.4-5.0); BLOOD UREA NITROGEN 3.8 mg/dL (7-18)
[2022-01-17 14:44] LABS: CREATININE 0.5 mg/dL (0.55-1.3)
[2022-01-17 14:46] LABS: BILIRUBIN,TOTAL 0.3 mg/dL (0.2-1); TOT PROT 8.5 g/dl (6.4-8.2)
[2022-01-17 14:59] LABS: VENOUS BASE EXCESS 0.8 mmol/L (-2-2); VENOUS O2 SATURATION 56.5 % (70-80); VENOUS PCO2 51.3 mmHg (38-52); VENOUS PH 7.343 (7.310-7.410)
[2022-01-17 15:03] LABS: URINE APPEARANCE CLEAR; URINE BILIRUBIN NEGATIVE (NEGATIVE); URINE COLOR YELLOW; URINE GLUCOSE (UA) NEGATIVE (NEGATIVE); URINE KETONE NEGATIVE (NEGATIVE); URINE LEUK ESTERASE NEGATIVE (NEGATIVE); URINE NITRITE NEGATIVE (NEGATIVE); URINE PROTEIN NEGATIVE (NEGATIVE); URINE UROBILINOGEN 0.2 mg/dL (0.2-1.0)
[2022-01-17] MEDS ORDERED: SODIUM CHLORIDE 0.9% 500 ML INFUS.BAG IV ONE (15:07)
[2022-01-17] MEDS ORDERED: levETIRAcetam 500 MG/5 ML INJECTION VIAL IVPB ONE ×2 (22:15→22:44)
[2022-01-18 02:18] VITALS: BMI 22.2
[2022-01-18 09:02] LABS: ALBUMIN 3.8 g/dl (3.4-5.0); BLOOD UREA NITROGEN 3.7 mg/dL (7-18); CALCIUM 9.5 mg/dL (8.5-10.1); MAGNESIUM 2.4 mg/dL (1.8-2.4)
[2022-01-18 09:05] LABS: CREATININE 0.7 mg/dL (0.55-1.3); PHOSPHOROUS 3.3 mg/dL (2.5-4.9)
[2022-01-18 09:07] LABS: BILIRUBIN,TOTAL 0.5 mg/dL (0.2-1)
[2022-01-18 09:20] LABS: BASO % 0.5 % (0-2.0); EOS % 0.3 % (0-4.5); HEMATOCRIT 36.5 % (35.4-49); HEMOGLOBIN 11.9 GM/dL (11.7-16.9); LYMPH % 17.6 % (8-40); MCH 24.4 pg (25.7-33.7); MCHC 32.7 g/dl (32.0-35.9); MEAN CELL VOLUME 74.6 fl (80-96); MEAN PLT VOLUME 7.7 fl (7.5-11.1); MONO % 6.1 % (3.8-10.2); NEUT % 75.5 % (42.8-82.8); PLATELET COUNT 276 10^3/uL (134-434); RBC 4.89 M/mm3 (4.00-5.60); RDW 16.9 % (11.9-15.9); WHITE BLOOD COUNT 7.4 K/mm3 (4.0-10.0)
[2022-01-18] MEDS ORDERED: HYDROCORTISONE 0.5% TOPICAL CREAM 30 GM TUBE TP PRN (10:49)
[2022-01-18] MEDS ORDERED: levETIRAcetam 500 MG TABLET (FP) PO SCH (11:00)
[2022-01-18] MEDS ORDERED: CEFTRIAXONE 1 GM in DEXTROSE 5%-WATER - 50 ML IVPB ONE (11:30)
[2022-01-18] MEDS: ENOXAPARIN NA (PORCINE) 40 MG/0.4 ML DISP.SYRIN SQ SCH (11:36)
[2022-01-18] MEDS ORDERED: cefTRIAXone SODIUM 1 GM VIAL ONE (11:38)
[2022-01-18] MEDS ORDERED: DEXTROSE 5%-WATER - 50 ML IVPB ONE (11:38)
[2022-01-18] MEDS: LORazepam 2 MG/ML SDV VIAL IVPUSH PRN (15:46)
[2022-01-18] MEDS: carBAMazepine XR 400 MG TAB.ER.12H PO SCH ×2 (16:39→21:24)
[2022-01-18] MEDS: levETIRAcetam 500 MG/5 ML INJECTION VIAL IVPB SCH (21:24)
[2022-01-19] MEDS: carBAMazepine XR 400 MG TAB.ER.12H PO SCH ×2 (06:19→14:11)
[2022-01-19 07:13] LABS: BASO % 0.5 % (0-2.0); EOS % 0.6 % (0-4.5); HEMATOCRIT 34.9 % (35.4-49); HEMOGLOBIN 11.4 GM/dL (11.7-16.9); LYMPH % 20.5 % (8-40); MCH 24.3 pg (25.7-33.7); MCHC 32.7 g/dl (32.0-35.9); MEAN CELL VOLUME 74.5 fl (80-96); MEAN PLT VOLUME 7.1 fl (7.5-11.1); MONO % 6.5 % (3.8-10.2); NEUT % 71.9 % (42.8-82.8); PLATELET COUNT 256 10^3/uL (134-434); RBC 4.68 M/mm3 (4.00-5.60); RDW 16.2 % (11.9-15.9)
[2022-01-19 07:30] LABS: CALCIUM 8.9 mg/dL (8.5-10.1)
[2022-01-19 07:31] LABS: BLOOD UREA NITROGEN 7.7 mg/dL (7-18); MAGNESIUM 2.3 mg/dL (1.8-2.4)
[2022-01-19 07:33] LABS: ALBUMIN 3.6 g/dl (3.4-5.0)
[2022-01-19 07:35] LABS: BILIRUBIN,TOTAL 0.3 mg/dL (0.2-1); TOT PROT 7.5 g/dl (6.4-8.2)
[2022-01-19 07:36] LABS: CREATININE 0.7 mg/dL (0.55-1.3)
[2022-01-19] MEDS: levETIRAcetam 500 MG/5 ML INJECTION VIAL IVPB SCH ×2 (09:47→21:06)
[2022-01-19] MEDS: ENOXAPARIN NA (PORCINE) 40 MG/0.4 ML DISP.SYRIN SQ SCH (09:47)
[2022-01-19] MEDS: Lacosamide 200 MG/20 ML VIAL IVPB SCH ×2 (10:35→22:00)
[2022-01-19] MEDS ORDERED: cefTRIAXone SODIUM 1 GM VIAL ONE (12:05)
[2022-01-19] MEDS ORDERED: DEXTROSE 5%-WATER - 50 ML IVPB ONE (12:05)
[2022-01-19] MEDS: CEFTRIAXONE 1 GM in DEXTROSE 5%-WATER - 50 ML IVPB SCH (12:09)
[2022-01-19 21:25] LABS: HEMATOCRIT 33.3 % (35.4-49); HEMOGLOBIN 10.8 GM/dL (11.7-16.9); MCH 24.1 pg (25.7-33.7); MCHC 32.5 g/dl (32.0-35.9); MEAN CELL VOLUME 74.2 fl (80-96); MEAN PLT VOLUME 7.1 fl (7.5-11.1); PLATELET COUNT 255 10^3/uL (134-434); RBC 4.49 M/mm3 (4.00-5.60); RDW 16.2 % (11.9-15.9); WHITE BLOOD COUNT 4.8 K/mm3 (4.0-10.0)
[2022-01-19 21:53] LABS: ALBUMIN 3.3 g/dl (3.4-5.0); BLOOD UREA NITROGEN 6.7 mg/dL (7-18); CALCIUM 8.5 mg/dL (8.5-10.1)
[2022-01-19 21:56] LABS: BILIRUBIN,DIRECT 0.1 mg/dL (0.0-0.2); CREATININE 0.6 mg/dL (0.55-1.3)
[2022-01-19 21:58] LABS: BILIRUBIN,TOTAL 0.1 mg/dL (0.2-1); TOT PROT 7.1 g/dl (6.4-8.2)
[2022-01-20] MEDS: LORazepam 2 MG/ML SDV VIAL IVPUSH PRN ×2 (02:29→03:42)
[2022-01-20] MEDS ORDERED: LORazepam 2 MG/ML SDV VIAL IVPUSH PRN ×2 (09:09→09:43)
[2022-01-20] MEDS ORDERED: DEXTROSE 5%-WATER - 50 ML IVPB ONE (10:12)
[2022-01-20] MEDS ORDERED: cefTRIAXone SODIUM 1 GM VIAL ONE (10:12)
[2022-01-20] MEDS: SODIUM CHLORIDE 1,000 ML IV SCH (10:40)
[2022-01-20] MEDS: levETIRAcetam 500 MG/5 ML INJECTION VIAL IVPB SCH ×2 (10:41→21:07)
[2022-01-20] MEDS: ENOXAPARIN NA (PORCINE) 40 MG/0.4 ML DISP.SYRIN SQ SCH (10:41)
[2022-01-20] MEDS: CEFTRIAXONE 1 GM in DEXTROSE 5%-WATER - 50 ML IVPB SCH (10:42)
[2022-01-20] MEDS: Lacosamide 200 MG/20 ML VIAL IVPB SCH ×2 (10:50→21:59)
[2022-01-21] MEDS ORDERED: DEXTROSE 5%-WATER - 50 ML IVPB ONE (09:01)
[2022-01-21] MEDS ORDERED: cefTRIAXone SODIUM 1 GM VIAL ONE (09:01)
[2022-01-21] MEDS: ENOXAPARIN NA (PORCINE) 40 MG/0.4 ML DISP.SYRIN SQ SCH (09:03)
[2022-01-21] MEDS: CEFTRIAXONE 1 GM in DEXTROSE 5%-WATER - 50 ML IVPB SCH (09:03)
[2022-01-21] MEDS: levETIRAcetam 500 MG/5 ML INJECTION VIAL IVPB SCH ×2 (09:45→22:36)
[2022-01-21] MEDS: SODIUM CHLORIDE 1,000 ML IV SCH (09:45)
[2022-01-21 10:04] LABS: BASO % 0.6 % (0-2.0); EOS % 0.7 % (0-4.5); HEMOGLOBIN 10.7 GM/dL (11.7-16.9); LYMPH % 25.9 % (8-40); MCH 24.1 pg (25.7-33.7); MCHC 32.4 g/dl (32.0-35.9); MEAN CELL VOLUME 74.3 fl (80-96); MEAN PLT VOLUME 7.6 fl (7.5-11.1); MONO % 12.6 % (3.8-10.2); NEUT % 60.2 % (42.8-82.8); PLATELET COUNT 240 10^3/uL (134-434); RBC 4.44 M/mm3 (4.00-5.60); RDW 16.1 % (11.9-15.9); WHITE BLOOD COUNT 4.3 K/mm3 (4.0-10.0)
[2022-01-21 10:56] LABS: ALBUMIN 3.3 g/dl (3.4-5.0); BLOOD UREA NITROGEN 4.2 mg/dL (7-18); MAGNESIUM 2.2 mg/dL (1.8-2.4)
[2022-01-21] MEDS ORDERED: Lacosamide 200 MG/20 ML VIAL IVPB ONE (10:56)
[2022-01-21 10:59] LABS: CREATININE 0.5 mg/dL (0.55-1.3)
[2022-01-21] MEDS: Lacosamide 200 MG/20 ML VIAL IVPB SCH ×2 (10:59→22:36)
[2022-01-21 11:01] LABS: BILIRUBIN,TOTAL 0.4 mg/dL (0.2-1); TOT PROT 7.3 g/dl (6.4-8.2)
[2022-01-21] MEDS: carBAMazepine XR 400 MG TAB.ER.12H PO SCH ×2 (11:17→22:36)
[2022-01-22] MEDS: SODIUM CHLORIDE 1,000 ML IV SCH ×3 (04:50→17:44)
[2022-01-22 08:40] LABS: BASO % 0.8 % (0-2.0); EOS % 1.6 % (0-4.5); HEMATOCRIT 31.7 % (35.4-49); HEMOGLOBIN 10.3 GM/dL (11.7-16.9); LYMPH % 30.4 % (8-40); MCH 24.6 pg (25.7-33.7); MCHC 32.6 g/dl (32.0-35.9); MEAN CELL VOLUME 75.4 fl (80-96); MEAN PLT VOLUME 7.3 fl (7.5-11.1); MONO % 9.8 % (3.8-10.2); NEUT % 57.4 % (42.8-82.8); PLATELET COUNT 224 10^3/uL (134-434); RDW 16.2 % (11.9-15.9); WHITE BLOOD COUNT 3.7 K/mm3 (4.0-10.0)
[2022-01-22] MEDS: levETIRAcetam 500 MG/5 ML INJECTION VIAL IVPB SCH ×2 (09:06→21:13)
[2022-01-22] MEDS: ENOXAPARIN NA (PORCINE) 40 MG/0.4 ML DISP.SYRIN SQ SCH (09:07)
[2022-01-22] MEDS: carBAMazepine XR 400 MG TAB.ER.12H PO SCH ×2 (09:07→21:12)
[2022-01-22 09:15] LABS: CREATININE 0.6 mg/dL (0.55-1.3)
[2022-01-22 09:19] LABS: ALBUMIN 3.1 g/dl (3.4-5.0); BLOOD UREA NITROGEN 4.4 mg/dL (7-18); CALCIUM 8.9 mg/dL (8.5-10.1)
[2022-01-22 09:20] LABS: MAGNESIUM 2.1 mg/dL (1.8-2.4)
[2022-01-22 09:23] LABS: BILIRUBIN,TOTAL 0.2 mg/dL (0.2-1)
[2022-01-22] MEDS: Lacosamide 200 MG/20 ML VIAL IVPB SCH ×2 (10:27→21:13)
[2022-01-22] MEDS ORDERED: POTASSIUM CHLORIDE ORAL LIQUID 20 MEQ/15 ML PO ONE (11:12)
[2022-01-22] MEDS ORDERED: BISACODYL 10 MG SUPP.RECT PR ONE (12:00)
[2022-01-23] MEDS: levETIRAcetam 500 MG/5 ML INJECTION VIAL IVPB SCH (09:12)
[2022-01-23] MEDS: ENOXAPARIN NA (PORCINE) 40 MG/0.4 ML DISP.SYRIN SQ SCH (09:14)
[2022-01-23] MEDS: carBAMazepine XR 400 MG TAB.ER.12H PO SCH (09:18)
[2022-01-23] MEDS: SODIUM CHLORIDE 1,000 ML IV SCH (09:18)
[2022-01-23] MEDS: Lacosamide 200 MG/20 ML VIAL IVPB SCH (09:19)
[2022-01-23 12:45] LABS: BASO % 0.5 % (0-2.0); EOS % 1.2 % (0-4.5); HEMOGLOBIN 10.5 GM/dL (11.7-16.9); LYMPH % 28.8 % (8-40); MCH 24.4 pg (25.7-33.7); MCHC 32.7 g/dl (32.0-35.9); MEAN CELL VOLUME 74.6 fl (80-96); MEAN PLT VOLUME 7.3 fl (7.5-11.1); MONO % 8.9 % (3.8-10.2); NEUT % 60.6 % (42.8-82.8); PLATELET COUNT 237 10^3/uL (134-434); RBC 4.29 M/mm3 (4.00-5.60); RDW 16.1 % (11.9-15.9); WHITE BLOOD COUNT 4.5 K/mm3 (4.0-10.0)
[2022-01-23 13:12] LABS: BLOOD UREA NITROGEN 5.7 mg/dL (7-18); CALCIUM 8.8 mg/dL (8.5-10.1)
[2022-01-23 13:14] LABS: ALBUMIN 3.2 g/dl (3.4-5.0)
[2022-01-23 13:16] LABS: CREATININE 0.5 mg/dL (0.55-1.3)
[2022-01-23 13:17] LABS: BILIRUBIN,TOTAL 0.3 mg/dL (0.2-1); TOT PROT 6.9 g/dl (6.4-8.2)
[2022-01-23 13:54] LABS: MAGNESIUM 2.1 mg/dL (1.8-2.4)
[2022-01-23 15:02] VITALS: BP 114/72; PULSE 79; TEMP 97.5
[2022-01-23] MEDS ORDERED: LACOSAMIDE 50 MG TABLET PO SCH (22:00)
== END 2022-01-23 18:04 | disposition home health service (06) | DRG 53 ==
LOC: JER 11:10 → JERBED 14:21 → INTOOBSV 14:21 → J6S 01-18 00:37 → OBSVTOIN 01-19 08:57
PROVIDERS: ADMIT Internal Medicine; ATTEND Nurse Practitioner Family
DX: G40.909 Epilepsy, unspecified, not intractable, without status epilepticus (principal); G80.9 Cerebral palsy, unspecified; G93.41 Metabolic encephalopathy; N39.0 Urinary tract infection, site not specified; R79.89 Other specified abnormal findings of blood chemistry
CPT/HCPCS: 36415; 70450-TC; 70551-TC; 71045-TC-FY; 80048; 80053; 80076; 80156; 80177; 81003; 82803; 82962; 83735; 84100; 84443; 84484; 85025; 85027; 85610; 85730; 87086; 87186; 93005; 93010; 95705; 97162-GP; 99285-25; C9803-CS; G0378; U0003; U0005

== ENCOUNTER 2023-04-19 05:05 | Day surgery (SDC) | payer OTHER ==
[2023-04-18 09:49] VITALS: BMI 23.6
[2023-04-19 12:54] VITALS: TEMP 97.1
[2023-04-19 13:34] VITALS: BP 130/85; PULSE 76; RESP 15
== END 2023-04-19 13:45 | disposition home or self-care (01) ==
LOC: JASU-ENDO 05:05
PROVIDERS: ATTEND Internal Medicine Gastroenterology
PROC: 0DB68ZX Excision of Stomach, Via Natural or Artificial Opening Endoscopic, Diagnostic (ICD-10-PCS; 2023-04-19)
PROC: 0DB58ZX Excision of Esophagus, Via Natural or Artificial Opening Endoscopic, Diagnostic (ICD-10-PCS; principal; 2023-04-19 12:00)
DX: K21.00 Gastro-esophageal reflux disease with esophagitis, without bleeding (principal)
CPT/HCPCS: 88305-TC; 88312-TC; 88342-TC

== ENCOUNTER → 2024-10-16 | Day surgery (SDC) | payer OTHER ==
[2024-10-16 08:53] VITALS: TEMP 97.9
[2024-10-16 09:35] VITALS: BP 112/75; PULSE 71; RESP 17
== END | disposition home or self-care (01) ==
LOC: JASU-ENDO 07:12
PROVIDERS: ATTEND Internal Medicine Gastroenterology
PROC: 0DB78ZX Excision of Stomach, Pylorus, Via Natural or Artificial Opening Endoscopic, Diagnostic (ICD-10-PCS; 2024-10-16)
PROC: 0DB68ZX Excision of Stomach, Via Natural or Artificial Opening Endoscopic, Diagnostic (ICD-10-PCS; 2024-10-16)
PROC: 0DB98ZX Excision of Duodenum, Via Natural or Artificial Opening Endoscopic, Diagnostic (ICD-10-PCS; principal; 2024-10-16 11:00)
DX: K21.00 Gastro-esophageal reflux disease with esophagitis, without bleeding (principal); K44.9 Diaphragmatic hernia without obstruction or gangrene; D64.9 Anemia, unspecified; R63.4 Abnormal weight loss
CPT/HCPCS: 88305-TC; 88342-TC